=== PATIENT | male | born 1955 | race African-American/Black ===

== ENCOUNTER 2017-07-05 13:53 | Observation (INO) | payer OTHER, BC ==
[2017-07-05 15:11] LABS: HEMATOCRIT 39.8 % (37.9-51.0); HGB HCT DIFFERENCE -0.8; MEAN CORPUSCULAR HEMOGLOBIN 28.8 pg (27.0-33.4); MEAN CORPUSCULAR HGB CONC 32.7 g/dL (32.0-36.0); MEAN CORPUSCULAR VOLUME 88 fl (80-97); RED BLOOD COUNT 4.51 10^6/uL (4.35-5.55); RED CELL DISTRIBUTION WIDTH 13.1 % (11.5-14.0); WHITE BLOOD COUNT 6.1 10^3/uL (4.0-10.5)
[2017-07-05 15:27] LABS: ALANINE AMINOTRANSFERASE 37 U/L (21-72); ALBUMIN 4.4 g/dL (3.5-5.0); ALKALINE PHOSPHATASE 109 U/L (38-126); ASPARTATE AMINO TRANSFERASE 20 U/L (17-59); BILIRUBIN,DIRECT 0.4 mg/dL (0.0-0.4); BILIRUBIN,TOTAL 0.6 mg/dL (0.2-1.3); BLOOD UREA NITROGEN 13 mg/dL (7-20); CALCIUM 9.2 mg/dL (8.4-10.2); CREATININE RESULT 1.16 mg/dL (0.52-1.25)
[2017-07-05 15:36] LABS: CARBON DIOXIDE 19 mmol/L (22-30); CHLORIDE 87 mmol/L (98-107); POTASSIUM 4.2 mmol/L (3.6-5.0); SODIUM 125.7 mmol/L (137-145)
[2017-07-05 15:46] LABS: ANION GAP 20 (5-19); GLUCOSE 876 mg/dL (75-110)
[2017-07-05] MEDS ORDERED: DEXTROSE 40% GEL 15 GM TUBE X 2 PO PRN (16:09)
[2017-07-05] MEDS ORDERED: DEXTROSE 40% GEL 15 GM TUBE PO PRN (16:09)
[2017-07-05] MEDS ORDERED: DEXTROSE 50%-WATER SYRINGE 12.5 GM/25 ML DOSE IV PRN (16:09)
[2017-07-05] MEDS ORDERED: GLUCAGON,HUMAN RECOMB 1 MG INJ IM PRN (16:09)
[2017-07-05] MEDS ORDERED: DEXTROSE 50%-WATER SYRINGE 25 GM/50 ML DOSE IV PRN (16:09)
[2017-07-05] MEDS: INSULIN LISPRO 100 UNIT/ML 3 ML VIAL SUBCUT PRN ×2 (17:28→22:38)
[2017-07-05] MEDS: NORMAL SALINE 1000 ML 1,000 ML IV PRN ×2 (18:40→20:39)
--- NOTE | 2017-07-05 21:07 | PDOC H&P ---
History of Present Illness Admission Date/PCP: 07/05/17 13:53 CARTER POP MD History of Present Illness: JOSSELINE COLIN is a 61 year old male, He came to the office yesterday for evaluation of polyuria polydipsia or weight loss he has history of diabetes mellitus, he follows with the [place] [facility], presently on Lantus, glipizide, the comprehensive metabolic panel showed serum glucose, 796, he was admitted for observation essentially for hydration therapy. Past Medical History Cardiac Medical History: Reports: Hypertension Endocrine Medical History: Reports: Diabetes Mellitus Type 2 Renal/ Medical History: Reports: Chronic Kidney Disease Social History Smoking Status: Former Smoker Frequency of Alcohol Use: Rare Hx Recreational Drug Use: No Drugs: None Hx Prescription Drug Abuse: No Family History Parental Family History Reviewed: Yes Children Family History Reviewed: Yes Sibling(s) Family History Reviewed.: Yes Medication/Allergy Home Medications: Amitriptyline HCl [Elavil 50 Mg Tablet] 50 mg PO QHS 07/05/17 Amlodipine Besylate [Norvasc 10 mg Tablet] 10 mg PO DAILY 07/05/17 Atenolol [Tenormin 100 mg Tablet] 100 mg PO DAILY 07/05/17 Fenofibrate 160 mg PO DAILY 07/05/17 Fluoxetine HCl [Prozac] 20 mg PO QAM 07/05/17 Glipizide [Glocotrol 10 Mg Tablet] 20 mg PO BID 07/05/17 Hydrochlorothiazide [Hydrodiuril 25 mg Tablet] 25 mg PO DAILY 07/05/17 Hydrocodone/Acetaminophen [Hydrocodon-Acetaminoph 7.5-325] 1 each PO Q6HP PRN Hydroxyzine Pamoate [Vistaril 25 mg Capsule] 25 mg PO Q8 07/05/17 Insulin Aspart Prot/Insuln Asp [Novolog Mix 70-30 Flexpen Syrn] 5 unit SQ AC 03/14 Insulin Glargine,Hum.rec.anlog [Lantus Solostar] 30 unit SQ DAILY 07/05/17 Metformin HCl [Glucophage 500 mg Tablet] 1,000 mg PO BIDACBS 07/05/17 Quetiapine Fumarate [Seroquel] 200 mg PO QHS 07/05/17 Rosuvastatin Calcium [Crestor 20 mg Tablet] 20 mg PO DAILY 07/05/17 Venlafaxine HCl [Effexor 75 mg Tablet] 75 mg PO DAILY 07/05/17 Allergies/Adverse Reactions: No Known Allergies Allergy (Unverified 07/05/17 14:21) Review of Systems Eyes: ABSENT: visual disturbances Ears: ABSENT: hearing changes Cardiovascular: ABSENT: as per HPI, chest pain, dyspnea on exertion, edema, orthropnea, palpitations, other Respiratory: ABSENT: cough, hemoptysis Gastrointestinal: ABSENT: abdominal pain, constipation, diarrhea, hematemesis, hematochezia, nausea, vomiting Genitourinary: ABSENT: dysuria, hematuria Musculoskeletal: ABSENT: joint swelling Integumentary: ABSENT: rash, wounds Neurological: ABSENT: abnormal gait, abnormal speech, confusion, dizziness, focal weakness, syncope Psychiatric: ABSENT: anxiety, depression, homidical ideation, suicidal ideation Endocrine: PRESENT: cold intolerance, polydipsia, polyuria Hematologic/Lymphatic: ABSENT: easy bleeding, easy bruising, lymphadenopathy Physical Exam Vital Signs: Temp Pulse Resp BP Pulse Ox 97.7 F 87 19 123/74 100 07/05/17 15:14 07/05/17 15:14 07/05/17 15:14 07/05/17 15:14 07/05/17 15:14 Intake & Output 07/04/17 07/05/17 07/06/17 06:59 06:59 06:59 Intake Total 2067 Output Total 650 Balance 1417 Weight 104.7 kg General appearance: PRESENT: cooperative Head exam: PRESENT: atraumatic, normocephalic Eye exam: PRESENT: PERRLA Ear exam: PRESENT: normal external ear exam Mouth exam: PRESENT: dry mucosa Neck exam: PRESENT: full ROM Respiratory exam: PRESENT: clear to auscultation marycruz Cardiovascular exam: PRESENT: RRR, +S1, +S2 Pulses: PRESENT: normal dorsalis pedis pul, +2 pedal pulses bilateral Vascular exam: PRESENT: normal capillary refill GI/Abdominal exam: PRESENT: normal bowel sounds, soft Rectal exam: PRESENT: deferred Neurological exam: PRESENT: alert, awake, oriented to person, oriented to place , oriented to time, oriented to situation, CN II-XII grossly intact. ABSENT: motor sensory deficit Psychiatric exam: PRESENT: appropriate affect, normal mood. ABSENT: homicidal ideation, suicidal ideation Skin exam: PRESENT: dry Results Laboratory Results: 07/05/17 14:45 07/05/17 14:45 07/05/17 07/05/17 14:45 14:45 WBC 6.1 RBC 4.51 Hgb 13.0 L Hct 39.8 MCV 88 MCH 28.8 MCHC 32.7 RDW 13.1 Plt Count 172 Sodium 125.7 L Potassium 4.2 Chloride 87 L Carbon Dioxide 19 L Anion Gap 20 H BUN 13 Creatinine 1.16 Est GFR ( Amer) > 60 Est GFR (Non-Af Amer) > 60 Glucose 876 H* Calcium 9.2 Total Bilirubin 0.6 AST 20 ALT 37 Alkaline Phosphatase 109 Total Protein 7.0 Albumin 4.4 Assessment & Plan - Diagnosis (1) Hyperosmolar non-ketotic state in patient with type 2 diabetes mellitus Is this a current diagnosis for this admission?: Yes Plan: . Patient was admitted for observation from the office for management of hyperosmolar state
[2017-07-05] MEDS ORDERED: (PENDING PHARMACY ID) (Atenolol [Tenormin 100 Mg Tablet] 100 MG) PO SCH (21:15)
[2017-07-05] MEDS ORDERED: INSULIN ASPART PROT SQ SCH (21:15)
[2017-07-05] MEDS ORDERED: INSULN ASP U SQ SCH (21:15)
[2017-07-05] MEDS ORDERED: [UNRECOGNIZED DRUG - OTHER] SQ SCH (21:15)
[2017-07-05] MEDS ORDERED: (PENDING PHARMACY ID) (Fenofibrate [Fenofibrate] 160 MG) PO SCH (21:15)
[2017-07-05] MEDS ORDERED: (PENDING PHARMACY ID) (Rosuvastatin Calcium [Crestor 20 Mg Tablet] 20 MG) PO SCH (21:15)
[2017-07-05 21:40] LABS: ALANINE AMINOTRANSFERASE 35 U/L (21-72); ALKALINE PHOSPHATASE 90 U/L (38-126); ANION GAP 16 (5-19); ASPARTATE AMINO TRANSFERASE 19 U/L (17-59); BILIRUBIN,DIRECT 0.3 mg/dL (0.0-0.4); BILIRUBIN,TOTAL 0.4 mg/dL (0.2-1.3); BLOOD UREA NITROGEN 13 mg/dL (7-20); CALCIUM 9.2 mg/dL (8.4-10.2); CARBON DIOXIDE 22 mmol/L (22-30); CHLORIDE 97 mmol/L (98-107); CREATININE RESULT 0.97 mg/dL (0.52-1.25); POTASSIUM 3.9 mmol/L (3.6-5.0); SODIUM 134.8 mmol/L (137-145); TOTAL PROTEIN 6.7 g/dL (6.3-8.2)
--- NOTE | 2017-07-05 21:56 | PDOC DISCHARGE SUMMARY ---
General - Admit/Disc Date/PCP Admission Date/Primary Care Provider: 07/05/17 13:53 CARTER POP MD Discharge Date: 07/05/17 - Discharge Diagnosis (1) Hyperosmolar non-ketotic state in patient with type 2 diabetes mellitus Is this a current diagnosis for this admission?: Yes - Additional Information Home Medications: Amitriptyline HCl [Elavil 50 mg Tablet] 50 mg PO QHS 07/05/17 Amlodipine Besylate [Norvasc 10 mg Tablet] 10 mg PO DAILY 07/05/17 Atenolol [Tenormin 100 mg Tablet] 100 mg PO DAILY 07/05/17 Empagliflozin [Jardiance] 25 mg PO DAILY #90 tablet 07/05/17 Exenatide Microspheres [Bydureon Pen] 2 mg SQ Q1 #12 ml 07/05/17 Fenofibrate 160 mg PO DAILY 07/05/17 Fluoxetine HCl [Prozac] 20 mg PO QAM 07/05/17 Glipizide [Glucotrol 10 mg Tablet] 20 mg PO BID 07/05/17 Hydrocodone/Acetaminophen [Hydrocodone-Acetamin 7.5-325] 1 each PO Q6HP PRN 03/14 Hydroxyzine Pamoate [Vistaril 25 mg Capsule] 25 mg PO Q8 07/05/17 Insulin Aspart Prot/Insuln Asp [Novolog Mix 70-30 Flexpen Syrn] 5 unit SQ AC 03/14 Insulin Glargine,Hum.rec.anlog [Lantus Solostar] 30 unit SQ DAILY 07/05/17 Metformin HCl [Glucophage 500 mg Tablet] 1,000 mg PO BIDACBS 07/05/17 Quetiapine Fumarate [Seroquel] 200 mg PO QHS 07/05/17 Rosuvastatin Calcium [Crestor 20 mg Tablet] 20 mg PO DAILY 07/05/17 Venlafaxine HCl [Effexor 75 mg Tablet] 75 mg PO DAILY 07/05/17 History of Present Illness History of Present Illness: JOSSELINE COLIN is a 61 year old male, He came to the office yesterday for evaluation of polyuria polydipsia or weight loss he has history of diabetes mellitus, he follows with the [place] [facility], presently on Lantus, glipizide, the comprehensive metabolic panel showed serum glucose, 796, he was admitted for observation essentially for hydration therapy. Hospital Course Hospital Course: Patient was admitted for observation essentially for hydration for hyperosmolar nonketotic diabetes mellitus. He has diabetes mellitus on Lantus glipizide and metformin the blood sugar was elevated at over 700 was admitted for hydration, medication was adjusted. Physical Exam Vital Signs: Temp Pulse Resp BP Pulse Ox 98.1 F 79 20 117/70 100 07/05/17 20:33 07/05/17 20:33 07/05/17 20:33 07/05/17 20:33 07/05/17 20:33 Intake & Output 07/04/17 07/05/17 07/06/17 06:59 06:59 06:59 Intake Total 2067 Output Total 650 Balance 1417 Weight 104.7 kg General appearance: PRESENT: no acute distress, well-developed, well-nourished Head exam: PRESENT: atraumatic, normocephalic Eye exam: PRESENT: conjunctiva pink, EOMI, PERRLA Ear exam: PRESENT: normal external ear exam Mouth exam: PRESENT: moist, tongue midline Neck exam: PRESENT: full ROM Respiratory exam: PRESENT: clear to auscultation marycruz Cardiovascular exam: PRESENT: RRR, +S1, +S2 Vascular exam: PRESENT: normal capillary refill GI/Abdominal exam: PRESENT: normal bowel sounds, soft Rectal exam: PRESENT: deferred Neurological exam: PRESENT: alert, awake, oriented to person, oriented to place , oriented to time, oriented to situation, CN II-XII grossly intact. ABSENT: motor sensory deficit Psychiatric exam: PRESENT: appropriate affect, normal mood Skin exam: PRESENT: dry, intact, warm Results Laboratory Results: 07/05/17 14:45 07/05/17 07/05/17 14:45 14:45 WBC 6.1 RBC 4.51 Hgb 13.0 L Hct 39.8 MCV 88 MCH 28.8 MCHC 32.7 RDW 13.1 Plt Count 172 Sodium 125.7 L Potassium 4.2 Chloride 87 L Carbon Dioxide 19 L Anion Gap 20 H BUN 13 Creatinine 1.16 Est GFR ( Amer) > 60 Est GFR (Non-Af Amer) > 60 Glucose 876 H* Calcium 9.2 Total Bilirubin 0.6 AST 20 ALT 37 Alkaline Phosphatase 109 Total Protein 7.0 Albumin 4.4
[2017-07-05] MEDS ORDERED: ATENOLOL 50 MG TABLET PO ONE (22:00)
[2017-07-05] MEDS ORDERED: GLIPIZIDE 10 MG TABLET PO ONE (22:00)
[2017-07-05] MEDS ORDERED: HYDROCHLOROTHIAZIDE 25 MG TABLET PO ONE (22:00)
[2017-07-05] MEDS ORDERED: HYDROXYZINE PAMOATE 25 MG CAPSULE PO SCH (22:00)
[2017-07-05] MEDS ORDERED: AMLODIPINE BESYLATE 10 MG TABLET PO ONE (22:00)
[2017-07-05] MEDS ORDERED: ATORVASTATIN CALCIUM 40 MG TABLET PO SCH (22:00)
[2017-07-05] MEDS ORDERED: (PENDING PHARMACY ID) (Quetiapine Fumarate [Seroquel] 200 MG) PO SCH (22:00)
[2017-07-05] MEDS ORDERED: METFORMIN HCL 500 MG TABLET PO ONE (22:00)
[2017-07-05] MEDS ORDERED: VENLAFAXINE HCL 75 MG TABLET PO ONE (22:00)
[2017-07-05] MEDS ORDERED: QUETIAPINE FUMARATE 100 MG TABLET PO SCH (22:00)
[2017-07-05] MEDS ORDERED: AMITRIPTYLINE HCL 50 MG TABLET PO SCH (22:00)
[2017-07-05 22:01] LABS: GLUCOSE 406 mg/dL (75-110)
[2017-07-05] MEDS ORDERED: ATENOLOL 50 MG TABLET ONE (22:39)
[2017-07-06 00:17] VITALS: BP 118/81
[2017-07-06] MEDS ORDERED: FLUOXETINE HCL 20 MG CAPSULE PO SCH (08:00)
[2017-07-06] MEDS ORDERED: METFORMIN HCL 500 MG TABLET PO SCH (08:00)
[2017-07-06] MEDS ORDERED: ATENOLOL 50 MG TABLET PO SCH (10:00)
[2017-07-06] MEDS ORDERED: HYDROCHLOROTHIAZIDE 25 MG TABLET PO SCH (10:00)
[2017-07-06] MEDS ORDERED: INSULIN GLARGINE,HUM.REC.ANLOG 300 UNIT/3 ML INSULN.PEN SUBCUT SCH (10:00)
[2017-07-06] MEDS ORDERED: GLIPIZIDE 10 MG TABLET PO SCH (10:00)
[2017-07-06] MEDS ORDERED: AMLODIPINE BESYLATE 10 MG TABLET PO SCH (10:00)
[2017-07-06] MEDS ORDERED: VENLAFAXINE HCL 75 MG TABLET PO SCH (10:00)
== END 2017-07-06 00:19 | disposition home or self-care (01) ==
LOC: 3S 13:53
PROVIDERS: ADMIT Internal Medicine; ATTEND Internal Medicine
DX: E11.00 Type 2 diabetes mellitus with hyperosmolarity without nonketotic hyperglycemic-hyperosmolar coma (NKHHC) (principal); I12.9 Hypertensive chronic kidney disease with stage 1 through stage 4 chronic kidney disease, or unspecified chronic kidney disease; E11.22 Type 2 diabetes mellitus with diabetic chronic kidney disease; N18.9 Chronic kidney disease, unspecified; Z79.899 Other long term (current) drug therapy; Z79.4 Long term (current) use of insulin; Z87.891 Personal history of nicotine dependence
CPT/HCPCS: 36415; 82962; 85027; 80076; 80048; 80053; J3490 ×2; J1815; J7030